=== PATIENT | female | born 1995 | race Caucasian/White ===

== ENCOUNTER 2019-04-15 17:20 | Emergency (ER) | payer SELFPAY ==
[~2019-04-15] VITALS: Ht 160 cm; Wt 50.0 kg
[2019-04-15 17:28] VITALS: Ht 160 cm; Wt 50.0 kg
[2019-04-15] MEDS ORDERED: ADDERALL 30 MG30 MG PO (17:29)
[2019-04-15] MEDS ORDERED: ZOLOFT25 MG PO (17:30)
[2019-04-15] MEDS ORDERED: CYCLOBENZAPRINE10 MG PO (17:41)
[2019-04-15 20:03] VITALS: BP 115/71
== END 2019-04-15 20:08 | disposition home or self-care (01) ==
LOC: D.ER 17:20
DX: S51.011A Laceration without foreign body of right elbow, initial encounter (principal); Y93.89 Activity, other specified; Y92.410 Unspecified street and highway as the place of occurrence of the external cause; T14.8XXA Other injury of unspecified body region, initial encounter

== ENCOUNTER 2019-10-06 15:01 | Emergency (ER) | payer SELFPAY ==
[~2019-10-06] VITALS: Ht 160 cm; Wt 50.5 kg
[~2019-10-06 15:01] MED LIST: ADDERALL 30 MG30 MG PO; CYCLOBENZAPRINE10 MG PO; ZOLOFT25 MG PO
[2019-10-06 15:18] VITALS: Ht 160 cm; Wt 50.5 kg
[2019-10-06] MEDS ORDERED: XANAX1 MG PO (15:20)
[2019-10-06 15:59] LABS: BASOPHILS 0.3 % (0-2); EOSINOPHILS 1.3 % (0-7); HEMATOCRIT 40.9 % (36.0-48.0); HEMOGLOBIN 13.2 g/dL (12-16); IMMATURE GRANULOCYTES 0.1 % (0-5); LYMPHOCYTES 21.5 % (15-50); MCH 31.5 pg (26.0-34.0); MCHC 32.3 g/dL (31.0-37.0); MCV 97.6 fL (80.0-100.0); NEUTROPHILS 72.8 % (40-80); PLATELET COUNT 294 10x3/uL (130-400); RBC 4.19 10x6/uL (4.00-5.40); RDW 13.2 % (11.5-14.5); WBC 6.8 10x3/uL (4.8-10.8)
[2019-10-06 16:12] LABS: APPEARANCE CLEAR (CLEAR); BILIRUBIN NEGATIVE (NEGATIVE); COLOR YELLOW (YELLOW); GLUCOSE NEGATIVE (NEGATIVE); HCG URINE NEGATIVE (NEGATIVE); KETONE NEGATIVE (NEGATIVE); NITRITE NEGATIVE (NEGATIVE); PROTEIN NEGATIVE (NEGATIVE); SPECIFIC GRAVITY 1.015 (1.005-1.020); UROBILINOGEN NORMAL (NORMAL)
[2019-10-06 16:14] LABS: CALC OSMOLALITY 283 mosm/kg (275-300); CALCIUM 8.6 mg/dL (8.5-10.1); CARBON DIOXIDE 27.9 mmol/L (21.0-32.0); CHLORIDE - SERUM 105 mmol/L (98-107); CREATININE - SERUM 0.8 mg/dL (0.6-1.3); GLUCOSE 88 mg/dL (74-106); SODIUM 143 mmol/L (136-145); UREA NITROGEN 13 mg/dL (7-18); eGFR NON AFRICAN AMERICAN > 90 mL/min (90-120)
[2019-10-06 16:16] LABS: UDS - AMPHET POSITIVE QUAL (NEGATIVE); UDS - BARB NEGATIVE QUAL (NEGATIVE); UDS - BENZO POSITIVE QUAL (NEGATIVE); UDS - COCAINE NEGATIVE QUAL (NEGATIVE); UDS - OPIATE NEGATIVE QUAL (NEGATIVE); UDS - PCP NEGATIVE QUAL (NEGATIVE); UDS - THC POSITIVE QUAL (NEGATIVE)
[2019-10-06 16:29] LABS: ALBUMIN 3.9 g/dL (3.4-5.0); ALKALINE PHOSPHATASE 71 U/L (46-116); ALT (SGPT) 46 U/L (10-68); BILIRUBIN - TOTAL 0.31 mg/dL (0.2-1.3); MAGNESIUM - SERUM 1.8 mg/dL (1.8-2.4); PROTEIN - SERUM 7.4 g/dL (6.4-8.2)
--- NOTE | 2019-10-06 17:16 | NUR ---
DR. BOWSER NOTIFIED AND SITTER ORDERED. SITTER AT BEDSIDE. NOTIFIED CHARGE NURSE AND ATTENDING IN REGARDS TO ASSESSMENT FINDINGS. RESOURCES GIVEN TO PT AND SAFETY PLAN INITIATED.
[2019-10-06 21:41] VITALS: BP 132/89
== END 2019-10-06 22:09 ==
LOC: D.ER 15:01
PROVIDERS: Emergency Medicine
DX: R45.851 Suicidal ideations (principal); R44.0 Auditory hallucinations; R44.1 Visual hallucinations